=== PATIENT | male | born 2000 | race Caucasian/White ===

== ENCOUNTER 2024-01-02 01:59 | Emergency (ER) | payer OTHER ==
[~2024-01-02] VITALS: Ht 190.5 cm; Wt 99.2 kg
[~2024-01-02 01:59] MED LIST: ADVITAB PO; AMOX875T2 PO; PRED20TA PO
[2024-01-02] MEDS ORDERED: IBUP80TA PO (02:07)
[2024-01-02 03:54] LABS: BASO # 0.1 10^3/uL (0.0-0.2); BASO % 0.5 % (0.0-1.0); EOS # 0.2 10^3/uL (0.0-0.5); EOS % 2.5 % (0.0-3.0); HEMATOCRIT 44.1 % (42.0-52.0); HEMOGLOBIN 15.4 g/dl (13.5-17.5); LYMPH # 3.1 10^3/uL (1.5-5.0); MEAN CORPUSCULAR HEMOGLOBIN 31.2 pg (27.0-33.0); MEAN CORPUSCULAR HGB CONC 34.9 g/dl (32.0-36.5); MEAN CORPUSCULAR VOLUME 89.5 fl (80.0-96.0); MONO % 10.9 % (2.0-8.0); NEUTROPHILS # 4.9 10^3/uL (1.5-8.5); NEUTROPHILS % 52.9 % (36.0-66.0); PLATELET COUNT, AUTOMATED 263 10^3/uL (150-450); RED BLOOD COUNT 4.93 10^6/uL (4.30-6.10); WHITE BLOOD COUNT 9.3 10^3/uL (4.0-10.0)
[2024-01-02 04:13] LABS: LIPASE 26 U/L (12-53)
[2024-01-02 04:15] LABS: ALBUMIN 4.2 G/DL (3.2-5.2); ALKALINE PHOSPHATASE 80 U/L (46-116); ALT/SGPT 24 U/L (7.0-40); AST/SGOT 21 U/L (<34); BILIRUBIN,DIRECT < 0.1 MG/DL (<0.4); BILIRUBIN,TOTAL 0.4 MG/DL (0.3-1.2); BLOOD UREA NITROGEN 22 MG/DL (9-23); CALCIUM LEVEL 9.1 MG/DL (8.5-10.1); CARBON DIOXIDE LEVEL 24 MMOL/L (20-31); CHLORIDE LEVEL 107 MMOL/L (98-107); CREATININE FOR GFR 1.08 MG/DL (0.70-1.30); GLOMERULAR FILTRATION RATE > 60.0 (>60); GLUCOSE, FASTING 87 MG/DL (60-100); SODIUM LEVEL 139 MMOL/L (136-145)
[2024-01-02] MEDS ORDERED: ISOVUE-370 76% 100ML VIAL As Ordered ONE (07:19)
[2024-01-02] MEDS ORDERED: AMOX875T2 PO (08:04)
[2024-01-02] MEDS ORDERED: MULTTAB61 PO (08:22)
[2024-01-02] MEDS: AUGMENTIN 875 MG TAB PO ONE (08:24)
[2024-01-02] MEDS ORDERED: HOME MED LIST COMPLETE! XX SCH (08:25)
[2024-01-02 09:08] VITALS: BP 118/66; TEMP 97.1; O2SAT 99
== END 2024-01-02 09:17 | disposition home or self-care (01) ==
LOC: M ED 01:59
DX: K57.92 Diverticulitis of intestine, part unspecified, without perforation or abscess without bleeding (principal); R10.32 Left lower quadrant pain; Z79.1 Long term (current) use of non-steroidal anti-inflammatories (NSAID); Z79.810 Long term (current) use of selective estrogen receptor modulators (SERMs)
CPT/HCPCS: 36415; 74177; 80048; 80076; 81001; 83690; 85025; 93041; 99284; Q9967

== ENCOUNTER 2025-08-28 19:58 | Emergency (ER) | payer OTHER ==
[~2025-08-28] VITALS: Ht 188 cm; Wt 97.2 kg
[~2025-08-28 19:58] MED LIST changes: +IBUP80TA PO; +MULTTAB61 PO
[2025-08-28] MEDS ORDERED: IBUPROFEN 600 MG TAB PO ONE (20:10)
[2025-08-28] MEDS: ACETAMINOPHEN 325 MG TAB PO ONE (20:25)
[2025-08-28 21:22] VITALS: BP 125/56; TEMP 99.2; O2SAT 97
[2025-08-28] MEDS ORDERED: OSEL75CA PO (21:50)
== END 2025-08-28 22:08 | disposition home or self-care (01) ==
LOC: M ED 21:57
DX: J09.X2 Influenza due to identified novel influenza A virus with other respiratory manifestations (principal); Z79.1 Long term (current) use of non-steroidal anti-inflammatories (NSAID); Z79.899 Other long term (current) drug therapy

== ENCOUNTER 2025-08-30 06:04 | Emergency (ER) | payer OTHER ==
[~2025-08-30] VITALS: Ht 188 cm; Wt 74.1 kg
[~2025-08-30 06:04] MED LIST changes: +OSEL75CA PO
[2025-08-30] MEDS ORDERED: ACET-683 PO (06:10)
[2025-08-30] MEDS: ACETAMINOPHEN 500 MG TAB PO ONE (06:54)
[2025-08-30 07:48] LABS: BASO # 0.0 10^3/uL (0.0-0.2); BASO % 0.3 % (0.0-1.0); EOS # 0.1 10^3/uL (0.0-0.5); EOS % 1.1 % (0.0-3.0); LYMPH # 1.1 10^3/uL (1.5-5.0); LYMPH % 16.6 % (24.0-44.0); MONO # 0.9 10^3/uL (0.0-0.8); MONO % 13.8 % (2.0-8.0); NEUTROPHILS # 4.4 10^3/uL (1.5-8.5); NEUTROPHILS % 67.9 % (36.0-66.0); PLATELET COUNT, AUTOMATED 185 10^3/uL (150-450)
[2025-08-30] MEDS: BENZONATATE 100 MG CAPSULE PO ONE (07:57)
[2025-08-30] MEDS: LIDOCAINE VISCOUS 2% SOLN 15 ML UDC SS ONE (07:57)
[2025-08-30 07:58] LABS: C REACTIVE PROTEIN QUANTITATIV 5.13 MG/DL (<1.0); CALCIUM LEVEL 8.8 MG/DL (8.5-10.1); CARBON DIOXIDE LEVEL 25 MMOL/L (20-31); CHLORIDE LEVEL 103 MMOL/L (98-107); CREATININE FOR GFR 0.87 MG/DL (0.70-1.30); GLOMERULAR FILTRATION RATE > 90.0 (>60); POTASSIUM SERUM 4.4 MMOL/L (3.5-5.1); SODIUM LEVEL 137 MMOL/L (136-145)
[2025-08-30] MEDS: NS (Normal Saline) 0.9% 1,000 ML IV ONE (07:58)
[2025-08-30 08:46] VITALS: TEMP 100.6
[2025-08-30] MEDS ORDERED: BENZ200C70 PO (08:57)
[2025-08-30] MEDS ORDERED: MUCI1TAB16 PO (08:57)
[2025-08-30 09:00] VITALS: BP 143/65; O2SAT 95
== END 2025-08-30 09:35 | disposition home or self-care (01) ==
LOC: M ED 06:04
DX: R05.9 Cough, unspecified (principal); R50.9 Fever, unspecified; Z79.1 Long term (current) use of non-steroidal anti-inflammatories (NSAID); Z79.899 Other long term (current) drug therapy